=== PATIENT | female | born 1960 | race Caucasian/White ===

== ENCOUNTER → 2019-02-03 | Day surgery (SDC) | payer OTHER ==
--- NOTE | 2019-02-06 12:56 | OP ---
DATE OF OPERATION: 02/03/2019 PREOPERATIVE DIAGNOSIS: Right breast mass, subareolar. POSTOPERATIVE DIAGNOSIS: Right breast mass, subareolar. PROCEDURE: Right breast ultrasound-guided core biopsy with clip placement. ANESTHESIA: Local. ATTENDING SURGEON: Chely Orona MD ESTIMATED BLOOD LOSS: Minimal. COMPLICATIONS: None. PROCEDURE: Patient was made aware of the risks and benefits of the procedure and consented. She was placed in the supine position. Under sterile conditions, with 1% lidocaine for local anesthesia, a small yoly was made in the skin. Using a 10-gauge suction biopsy device via lateral approach under ultrasound guidance, multiple cores were obtained and submitted to Pathology. Likewise under ultrasound guidance, a U-shaped clip was placed into the biopsy region. Well tolerated by patient. Steri-Strips and sterile bandage was applied. Will contact her with the results. CHELY ORONA M.D. [id number]
--- NOTE | 2019-02-09 09:50 | PATH ---
Surgical Pathology Report Patient Name: DEEPALI PIEDRA [facility]. Rec. #: [id number] /Age/Gender: 1960 (Age: 58) / F Account: [id number] Location: Taken: 02/03/2019 Received: 02/03/2019 Reported: 02/09/2019 Physicians: Murray Palma M.D. Specimen(s) Received RIGHT BREAST CORE BIOPSY RETROAREOLAR Clinical History Nonpalpable lesion Ultrasound findings: Suspicious Final Diagnosis Breast, right, retroareolar, core biopsy: Invasive ductal carcinoma, moderately differentiated, with prominent associated lymphocytic infiltrate. Invasive carcinoma measures 4 mm in greatest dimension In this material. Results of ER and CT studies performed on block 2 at [facility] are as follows: ER (clone [id number] mouse monoclonal antibody by [employer]): > 90 % nuclear staining with strong intensity (positive). CT (clone16 mouse monoclonal antibody by Leica): ~50 % nuclear staining with strong to moderate intensity (positive). Results of Her2 & Ki67 studies will be reported separately in an addendum. Positive and negative controls (internal if applicable) show appropriate results. Formalin fixation and cold ischemic times are within current ASCO/CAP recommendations for ER, CT and Her2 testing. Electronically Signed Carmen Viera M.D. Addendum Reported: 02/09/2019 Addendum Diagnosis Results of Her2 (IHC) & Ki-67 studies performed on block 2 at [place], [place] ([id number]) are as follows: Her2 IHC (EP3 from [employer], formerly known as [id number], using Pryor Polymer Refine detection kit): 0 (negative). Ki-67: ~10% (low proliferative index). Positive and negative controls (internal if applicable) show appropriate results. Carmen Viera M.D. Gross Description Received in formalin labeled "right breast biopsy retro," is a 2.5 x 2.5 x 0.3 cm aggregate of multiple pineda-yellow, irregular to cylindrical portions of fibroadipose tissue. The formalin is filtered and the specimen is entirely submitted in 2 cassettes. Time to formalin fixation: < 1minute Total formalin fixation time: Approximately 27 hours. /02/07/2019 saudi02/07/2019
== END | disposition home or self-care (01) ==
LOC: FRADUS-SUR 14:37
PROVIDERS: ATTEND Surgery Surgical Oncology
PROC: 0HBT3ZX Excision of Right Breast, Percutaneous Approach, Diagnostic (ICD-10-PCS; principal; 2019-02-03)
DX: C50.111 Malignant neoplasm of central portion of right female breast (principal); Z17.0 Estrogen receptor positive status [ER+]; N63.10 Unspecified lump in the right breast, unspecified quadrant
CPT/HCPCS: 19083; 77065-TC; 87899; 88305-TC; 88342-TC; A4648

== ENCOUNTER 2019-03-03 12:03 | Emergency (ER) | payer OTHER ==
[2019-03-03 12:08] VITALS: TEMP 98.1; BMI 25.4
--- NOTE | 2019-03-03 13:33 | PDOC ---
History of Present Illness - General Chief Complaint: Injury Stated Complaint: FALL, RT KNEE, FACIAL/MOUTH PAIN, LIP LACERATION Time Seen by Provider: 03/03/19 13:14 History Source: Patient Exam Limitations: No Limitations - History of Present Illness Initial Comments: 03/03/19 13:33 58y F hx of htn, breast ca (pending lumpectomy next week) presents with complaint sp fall. Pt tripped over a parking marker and fell on her knees/hands but also struck her face on the ground. Pt denies any headache, n/v, vision changes, neck pain, back pain. Pt endorses mild pain to her upper lip, palms and knees. Pt denies any pain with ambulation or moveemnt of her joints. pt denies any preceding cp, sob, palpitations, lightehadedness, abd pain. ROS: HEENT: no reported vision changes, +laceration to lip Respiratory: no reported sob Cardiac: no reported chest pain, palpitations, light headedness, leg swelling Abd/GI: no reported abd pain, nausea, vomiting, Musculskelatal - mild R knee pain and pain to hands, no reported back pain, joint swelling skin - +abrasion no reported bruising, erythema, rash neurological: no reported headache, numbness, focal weakness, tingling, ataxia, hematologic: no reported easy bruising, easy bleeding Physicial Exam GENERAL: The patient is awake, alert, and fully oriented, Nontoxic - in no acute distress. HEAD: Normocephalic, atraumatic except for lip, no focal bony tenderness on scalp or face. EYES: extraocular movements intact, sclera anicteric, conjunctiva clear. ENT: Normal voice, Moist mucous membranes, approx 1.5cm stellate laceraton on L upper lip, no loose teeth, no malocclusion NECK: Normal range of motion, supple, no focal midline or parapsinal tenderness ABDOMEN: Soft, nontender, No guarding, no rebound. EXTREMITIES: Normal range of motion, no edema. No focal bony tenderness or limitation of ROM on wrist, elbow, hands, shoulder, hips, knee b/l, abrasion on R knee without focal bony tenderness. NEUROLOGICAL: No facial assymetry, Normal speech, normal gait. SKIN: Warm, Dry, normal turgor, 58y F presenting sp mechanical fall with mild pain on her knee hands and lip laceration. laceration was gaping and was closed with 2 resorable sutures no focal bony ttp will defer imaging pt due for tetanus, but notse she gets a fever after it, as she is pending surgery next wednesday, will defer her tetnaus until after her surgery - she will follow up with Dr Sargent after her surgery regarding updating her tetanus. I discussed the physical exam findings, ancillary test results and final diagnoses with the patient. I answered all of the patient's questions. The patient was satisfied with the care received and felt comfortable with the discharge plan and treatment plan. The patient will call their primary care physician within 24 hours to arrange follow-up and will return to the Emergency Department with any new, persistent or worsening symptoms. Past History - Past Medical History Allergies/Adverse Reactions: Allergies Allergy/AdvReac Type Severity Reaction Status Date / Time No Known Allergies Allergy Verified 03/03/19 12:04 Home Medications: Ambulatory Orders Amlodipine Besylate [Norvasc -] 5 mg PO DAILY 03/03/19 Hydrochlorothiazide [Hctz -] 12.5 mg PO DAILY 03/03/19 Anemia: No Asthma: No Cancer: Yes (BREAST) Cardiac Disorders: No CVA: No COPD: No CHF: No Dementia: No Diabetes: No GI Disorders: No Disorders: No HTN: Yes Hypercholesterolemia: Yes Liver Disease: No Seizures: No Thyroid Disease: No - Surgical History Abdominal Surgery: No Appendectomy: No Cardiac Surgery: No Cholecystectomy: Yes Lung Surgery: No Neurologic Surgery: No Orthopedic Surgery: No - Suicide/Smoking/Psychosocial Hx Smoking History: Never smoked Have you smoked in the past 12 months: No Information on smoking cessation initiated: No Hx Alcohol Use: No Drug/Substance Use Hx: No Substance Use Type: Alcohol Hx Substance Use Treatment: No *Physical Exam - Vital Signs Last Vital Signs Temp Pulse Resp BP Pulse Ox 98.1 F 78 18 189/94 H 98 03/03/19 12:03 03/03/19 12:03 03/03/19 12:03 03/03/19 12:03 03/03/19 12:03 *DC/Admit/Observation/Transfer Diagnosis at time of Disposition: Laceration of lip Qualifiers: Encounter type: initial encounter Qualified Code(s): S01.511A - Laceration without foreign body of lip, initial encounter Abrasion of knee, right Qualifiers: Encounter type: initial encounter Qualified Code(s): S80.211A - Abrasion, right knee, initial encounter - Discharge Dispostion Disposition: HOME Condition at time of disposition: Improved Decision to Admit order: No - Referrals Referrals: Rick Sargent MD [Primary Care Provider] - - Patient Instructions Printed Discharge Instructions: DI for Laceration Repair Additional Instructions: Your lip laceration was closed with dissolvable sutures. After 4-5 days the sutures will dissolve and fall off. If there is any oozing or bleeding you can put preassure on it or use an ice cube. If there is any redness, swelling, increased pain or other concerns, return for reevaluation. Use bacitracin on your knee abrasions until they are healed. Follow up with Dr. Sargent for a tetanus shot after your surgery. Print Language: SRI LANKAN - Post Discharge Activity
[2019-03-03 13:44] VITALS: BP 157/90; PULSE 66
== END 2019-03-03 13:45 | disposition home or self-care (01) ==
LOC: FER 12:03
DX: S80.211A Abrasion, right knee, initial encounter (principal); S01.511A Laceration without foreign body of lip, initial encounter; I10 Essential (primary) hypertension; E78.00 Pure hypercholesterolemia, unspecified; Z85.3 Personal history of malignant neoplasm of breast; W18.39XA Other fall on same level, initial encounter; Y93.89 Activity, other specified; Y92.89 Other specified places as the place of occurrence of the external cause
CPT/HCPCS: 99283-25

== ENCOUNTER 2019-03-09 07:57 | Day surgery (SDC) | payer OTHER ==
[2019-02-27 17:55] VITALS: BMI 25.4
--- NOTE | 2019-03-02 11:16 | HP ---
Admitting History and Physical - Primary Care Physician PCP: Murray Palma - Admission Chief Complaint: right breast cancer History of Present Illness: 58 yo female noted to have a right suspicious retroareolar mass on US and mammo , underwent an US guided core bx of this .5 cm lesion on 02/03. The bx was c/w invasive ductal carcinoma ER and MA positive Her 2 negative. The MRI done 02/16 was c/w known cancer as well as a left retroareolar .5 cm enhancing mass. A focused US of this left retroareolar region revealed a benign appearing hypoechoic mass (Birads 3). Patient is now presenting for a right breast WE with NL, SNBx poss ANDx, and lympho. 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 - Smoking History Smoking history: Never smoked Have you smoked in the past 12 months: No - Alcohol/Substance Use Hx Alcohol Use: Yes (SOCIAL) Home Medications - Allergies Allergies/Adverse Reactions: Allergies Allergy/AdvReac Type Severity Reaction Status Date / Time No Known Allergies Allergy Verified 10/23/11 14:03 - Home Medications Home Medications: Ambulatory Orders Evergreen-3 Fatty Acids [Evergreen-3] 1 tab PO DAILY 02/27/19 Family Disease History - Family Disease History Family Disease History: CA: Father (melanoma), Mother (breast cancer at 79) Review of Systems - Review of Systems Constitutional: reports: No Symptoms Cardiovascular: reports: No Symptoms Respiratory: reports: No Symptoms Physical Examination Constitutional: Yes: Well Nourished, Calm Breast(s): Yes: Other (Breast are symmetrical without skin changes or nipple discharge. She has an average C-cup breast. No palpable suspicious masses or adenopathy noted bilaterally.) Problem List - Problems (1) Breast cancer, right breast Code(s): C50.911 - MALIGNANT NEOPLASM OF UNSP SITE OF RIGHT FEMALE BREAST Qualifiers: Breast location: central portion of breast Estrogen receptor status: positive Patient sex: female Qualified Code(s): C50.111 - Malignant neoplasm of central portion of right female breast; Z17.0 - Estrogen receptor positive status [ER+] Assessment/Plan Plan: Right breast WE with NL, snbx with lympho
[2019-03-09] MEDS ORDERED: ONDANSETRON 4 MG/2 ML VIAL ONE (13:33)
[2019-03-09] MEDS ORDERED: DEXAMETHASONE SOD PHOSPHATE 4 MG/1 ML VIAL ONE (13:33)
[2019-03-09] MEDS ORDERED: PROPOFOL 20 ML ONE ×2 (13:33)
[2019-03-09] MEDS ORDERED: MIDAZOLAM HCL 2 MG/2 ML SINGLE DOSE VIAL ONE (13:34)
[2019-03-09] MEDS ORDERED: ISOSULFAN BLUE 10 MG/ML VIAL SQ ONE (13:41)
[2019-03-09] MEDS ORDERED: BUPIVACAINE HCL/PF 0.5% (5MG/ML) 10 ML VIAL ONE (13:41)
[2019-03-09] MEDS ORDERED: EPHEDRINE SULFATE/0.9% NACL/PF 50 MG/10 ML SYRINGE NR ONE (14:07)
[2019-03-09] MEDS ORDERED: ACETAMINOPHEN 500 MG TABLET (FP) PO PRN (15:48)
[2019-03-09] MEDS ORDERED: ONDANSETRON 4 MG/2 ML VIAL IVPUSH PRN (15:55)
[2019-03-09] MEDS ORDERED: KETOROLAC TROMETHAMINE 30 MG/1 ML VIAL IVPUSH PRN (15:55)
[2019-03-09] MEDS ORDERED: DEXTROSE 5%-0.45% SALINE 1,000 ML IV SCH (16:00)
[2019-03-09 16:43] VITALS: TEMP 98.4
[2019-03-09] MEDS ORDERED: KETOROLAC TROMETHAMINE 30 MG/1 ML VIAL ONE (16:48)
--- NOTE | 2019-03-09 17:33 | OP ---
DATE OF OPERATION: 03/09/2019 PREOPERATIVE DIAGNOSIS: Right breast cancer, central location. POSTOPERATIVE DIAGNOSIS: Right breast cancer, central location. PROCEDURE: Right breast partial mastectomy with mammographic needle localization and sentinel lymph node biopsy. ANESTHESIA: General laryngeal mask airway anesthesia. PRIMARY SURGEON: Brigid Palma M.D. SAMPLE WEAVER: Vernon Sanchez COMPLICATIONS: There were no complications. Briefly, the patient is a 58-year-old G4, P4, post menopausal female of [place] descent with a family history with a mother had breast cancer at age 79 and father had melanoma. The patient had a recent mammography and ultrasound showing a 4-mm right breast retroareolar density and ultrasound guided core biopsy showed a moderately differentiated invasive duct cancer which was ER/NV positive, HER2/christian negative. MRI shows the right breast cancer to be localized, and she did have a left retroareolar finding, but diagnostic ultrasound showed this to be likely benign. She was advised to undergo a right breast partial mastectomy and needle localization and sentinel lymph node biopsy. The patient was brought in for the procedure on March 09, 2019, and underwent scintigraphy and needle localization at [facility] and was brought to [place] into the holding area. In the holding area, site verification was made and informed consent was obtained. She was brought into the operating room and laid on the OR table in a supine position. Venodynes were placed on the lower extremities prior to induction. She was given a gram of Ancef prior to incision. She underwent general laryngeal mask airway anesthesia. 3 mL of Lymphazurin blue were injected intradermally, and felicitas-tumorally around the right breast retroareolar region and massage was instituted. At this point she was sterilely prepped and draped in the usual fashion. A timeout was performed. The right axillary sentinel lymph node biopsy was first performed. An incision was made just below the hair bearing area of the right axilla, and dissection was undertaken around the needle localization site. The incision was periareolar. The breast tissue was completely removed from around the needle localization wire intact and oriented with a long lateral, short superior suture. Specimen radiographs showed removal of the clip in question. Several margins were then taken on the superior, inferior, medial, lateral, and deep, and anterior aspects, with sutures marking the biopsy cavity side, and each of these specimens were sent separately to pathology as margins. Hemostasis was achieved, and the wound was copiously irrigated with warm, sterile saline. A 5 x 4 cm tissue transfer closure was then accomplished by undermining the breast tissue and reapproximated underneath the nipple. The breast tissue was reapproximated using 2-0 plain suture, and the skin was then closed using interrupted 3-0 deep dermal Vicryl suture and a running 4-0 subcuticular Biosyn suture. The right axillary sentinel lymph node biopsy was closed in a similar fashion. Mastisol, Steri-Strips were applied over the wound and compression dressings placed over this. She was placed in a surgical bra postoperatively. All sponge, needle counts were correct at the end of the case and estimated blood loss was minimal. The patient had laryngeal mask airway tube removed at the end of the case and will be recovered in the post anesthesia care unit and discharged home the same day once discharge criteria area met. She is to follow up in the office in 1 week for formal wound pathology check. BRIGID PALMA M.D. [id number]
[2019-03-09 18:23] VITALS: BP 116/56; PULSE 86
--- NOTE | 2019-03-14 15:54 | PATH ---
Surgical Pathology Report Patient Name: DEEPALI PIEDRA [facility]. Rec. #: [id number] /Age/Gender: 1960 (Age: 58) / F Account: [id number] Location[facility] Taken: 03/09/2019 Received: 03/09/2019 Reported: 03/14/2019 Physicians: Murray Palma M.D. Specimen(s) Received A: RIGHT AXILLARY SENTINEL NODE #1 B: RIGHT AXILLARY SENTINEL NODE #2 C: RIGHT BREAST WIDE EXCISION D: RIGHT BREAST ANTERIOR MARGIN E: RIGHT BREAST POSTERIOR MARGIN F: RIGHT BREAST MEDIAL MARGIN G: RIGHT BREAST LATERAL MARGIN H: RIGHT BREAST INFERIOR MARGIN I: RIGHT BREAST SUPERIOR MARGIN Clinical History Invasive carcinoma, retroareolar Final Diagnosis A. lymph node, right axillary sentinel #1, excision: One lymph node, negative for metastatic carcinoma (0/1). B. lymph node, right axillary sentinel #2, excision: One lymph node, negative for metastatic carcinoma (0/1). C. breast, right, wide excision: Invasive ductal carcinoma, moderately differentiated, with prominent associated lymphocytic infiltrate, measuring 4 mm in greatest dimension, microscopically. Surgical margins are uninvolved by carcinoma; carcinoma is at 5 mm from the closest (inferior) margin. see specimens D-I for final margins. No lymphovascular invasion is identified. Remaining breast tissue shows usual ductal hyperplasia (UDH) and columnar cell change. Prior biopsy site changes are present. Pathologic stage (pTNM):pT1a pN0. see also invasive carcinoma case summary below. D. breast, right, anterior margin, excision: Benign breast tissue. E. breast, right, posterior margin, excision: Benign breast tissue. F. breast, right, medial margin, excision: Benign breast tissue. G. breast, right, lateral margin, excision: Benign breast tissue. H. breast, right, inferior margin, excision: Benign breast tissue showing usual ductal hyperplasia (UDH). I. breast, right, superior margin, excision: Benign breast tissue. Comments Breast Invasive Carcinoma: Surgical Pathology Case Summary (Based on AJCC TNM 8 th edition) Procedure _X_ Excision (less than total mastectomy) Specimen Laterality _X_ Right Tumor Size _X_ Greatest dimension of largest invasive focus >1 mm (millimeters): 4 mm Histologic Type _X_ Invasive carcinoma of no special type (ductal, not otherwise specified) Histologic Grade (Yanique Histologic Score) Glandular (Acinar)/Tubular Differentiation _X_ Score 3 (<10% of tumor area forming glandular/tubular structures) Nuclear Pleomorphism _X_ Score 2 Mitotic Rate _X_ Score 1 Overall Grade _X_ Grade 2 (scores of 6 or 7) Tumor Focality _X_ Single focus of invasive carcinoma Ductal Carcinoma In Situ (DCIS) _X_ No DCIS in specimen Margins Invasive Carcinoma Margins _X_ Uninvolved by invasive carcinoma Distance from closest margin (millimeters): 5 mm from inferior margin in wide excision C. Final inferior margin H is negative for carcinoma. DCIS Margins _X_ No DCIS in specimen Regional Lymph Nodes _X_ Uninvolved by tumor cells Number of Lymph Nodes Examined: 2 Number of Sheldon Nodes Examined: 2 Treatment Effect _X_ No known presurgical therapy Lymphovascular Invasion _X_ Not identified Pathologic Stage Classification (pTNM, AJCC 8th Edition) Primary Tumor (Invasive Carcinoma) (pT) _X_ pT1a: Tumor >1 mm but =5 mm in greatest dimension (round any measurement >1.0-1.9mm to 2 mm) Regional Lymph Nodes (pN) Category (pN) _X_ pN0: No regional lymph node metastasis identified or ITCs only Biomarker Studies Results of ER and UT studies performed on prior biopsy () at [facility] are as follows: ER (clone [id number] mouse monoclonal antibody by [employer]) : >90 % nuclear staining with strong to moderate intensity (positive). UT (clone16 mouse monoclonal antibody by [employer]): ~50 % nuclear staining with strong to moderate intensity (positive). Results of Her2 (IHC) & Ki-67 studies performed on prior biopsy (1335) at [place], [place] ([id number]) are as follows: Her2 IHC (EP3 from [employer], formerly known as [id number], using Pryor Polymer Refine detection kit): 0 (negative). Ki67:~10 % (low proliferative index). Electronically Signed Carmen Viera M.D. Gross Description A. Received in formalin, labeled, "right axillary sentinel node #1" is a 1.5 x 1 x 0.3 cm lymph node with attached fatty tissue. The lymph node is bisected and entirely submitted in one cassette. B. Received in formalin, labeled "right axillary sentinel node #2" is a 1.2 x 1 x 0.2 cm lymph node with attached fatty tissue. Entirely submitted in one cassette. C. Received in formalin, labeled "right breast, wide excision" is a 4.5 x 3.5 x 2 cm portion of fibrofatty tissue with a localizing needle in place. A long suture designates the lateral margin and a short suture indicates the superior margin, per the surgeon. The specimen is inked as follows: superior-blue, inferior-green, anterior-red, posterior- black, lateral-yellow, medial-orange. Sectioning reveals a 0.8 x 0.7 x 0.5 cm ill-defined firm mass with a central hemorrhagic focus. A metallic clip is identified within the mass. The mass is at 0.5 cm from the inferior and lateral margins, 0.8 cm from the superior margin and more than 1 cm from all other margins. Remaining breast tissue is comprised predominantly of fatty tissue with focal white fibrous foci and streaks. Residential Mortgage Manager sections are submitted in eight cassettes as follows: 1-3- mass with superior, inferior and lateral margins; 4, 5-surrounding tissue with medial, superior and inferior margins; 6-anterior margin 7-, posterior margin. Time to formalin fixation: 11 minutes. Total formalin fixation time: approximately 30 hours D. Received in formalin, labeled " anterior margin right breast" is a 2 x 1.1 x 0.4 cm portion of fibrofatty tissue with a stitch at the biopsy cavity side, per the surgeon. The margin opposite the stitch is inked black. The specimen is sectioned and entirely submitted in one cassette. E. Received in formalin, labeled "posterior margin right breast" is a 2.8 x 1.7 x 0.7 cm portion of fibrofatty tissue with a stitch at the biopsy cavity side, per the surgeon. The margin opposite the stitch is inked black. The specimen is sectioned and entirely submitted in two cassettes. F. Received in formalin, labeled "medial margin right breast" is a 2.7 x 1.5 x 0.5 cm portion of fibrofatty tissue with a stitch at the biopsy cavity side, per the surgeon. The margin opposite the stitch is inked black. The specimen is sectioned and entirely submitted in two cassettes. G. Received in formalin, labeled "lateral margin right breast" is a 2.2 x 1.5 x 0.7 cm portion of fibrofatty tissue with a stitch at the biopsy cavity side, per the surgeon. The margin opposite the stitch is inked black. The specimen is sectioned and entirely submitted in three cassettes. H. Received in formalin, labeled "inferior margin right breast" is a 2.8 x 2.0 x 0.7 cm portion of fibrofatty tissue with a stitch at the biopsy cavity side, per the surgeon. The margin opposite the stitch is inked black. The specimen is sectioned and entirely submitted in three cassettes. I. Received in formalin, labeled "superior margin right breast" is a 2.7 x 1.8 x 0.76 cm portion of fibrofatty tissue with a stitch at the biopsy cavity side, per the surgeon. The margin opposite the stitch is inked black. The specimen is sectioned and entirely submitted in three cassettes. ___ ___
== END 2019-03-09 18:00 | disposition home or self-care (01) ==
LOC: FASU 07:57
PROVIDERS: ATTEND Surgery Surgical Oncology
PROC: 0HBT0ZZ Excision of Right Breast, Open Approach (ICD-10-PCS; principal; 2019-03-09 14:22)
DX: C50.111 Malignant neoplasm of central portion of right female breast (principal); Z17.0 Estrogen receptor positive status [ER+]; Z80.3 Family history of malignant neoplasm of breast
CPT/HCPCS: 19281; 78195-TC; 88307-TC; 94760; A9541

== ENCOUNTER 2023-06-25 04:37 | Day surgery (SDC) | payer OTHER ==
[2023-06-23 10:05] VITALS: BMI 26.8
[2023-06-25 12:04] VITALS: RESP 16; TEMP 98.2
[2023-06-25 12:15] VITALS: PULSE 75
[2023-06-25 12:35] VITALS: BP 105/55
== END 2023-06-25 12:38 | disposition home or self-care (01) ==
LOC: JASU-ENDO 04:37
PROVIDERS: ATTEND Internal Medicine Gastroenterology
PROC: 0DBP8ZX Excision of Rectum, Via Natural or Artificial Opening Endoscopic, Diagnostic (ICD-10-PCS; principal; 2023-06-25 12:00)
DX: Z12.11 Encounter for screening for malignant neoplasm of colon (principal); D12.8 Benign neoplasm of rectum; K64.8 Other hemorrhoids; K57.30 Diverticulosis of large intestine without perforation or abscess without bleeding; K92.1 Melena; R10.32 Left lower quadrant pain; I10 Essential (primary) hypertension
CPT/HCPCS: 88305-TC